=== PATIENT | female | born 1940 | race Caucasian/White ===

== ENCOUNTER 2017-01-24 10:13 | Day surgery (SDC) | payer MEDICARE, OTHER ==
[~2017-01-24] VITALS: Ht 160 cm; Wt 68.2 kg
[2017-01-24 11:19] VITALS: Ht 160 cm; Wt 68.2 kg
[2017-01-24] MEDS ORDERED: LEVO75TA5 PO (11:33)
[2017-01-24] MEDS ORDERED: OMEP20CA16 PO ×2 (11:33)
[2017-01-24] MEDS ORDERED: ATEN50TA PO (11:33)
[2017-01-24] MEDS ORDERED: LOSA25TA5 PO (11:33)
[2017-01-24 11:40] VITALS: BP 131/69; PULSE 57; RESP 20
[2017-01-24] MEDS ORDERED: PROPOFOL 40 ML ONE (11:50)
[2017-01-24] MEDS ORDERED: LIDOCAINE 100 MG SYRINGE ONE (11:50)
[2017-01-24] MEDS ORDERED: FENTAnyl 50 MCG/ML VIAL ONE (11:51)
--- NOTE | 2017-01-24 12:25 | OPPN ---
Date/Time of Note Date/Time of Note DATE: 01/24/17 TIME: 12:24 Operative Report Preoperative Diagnosis Abdominal pain Rectal bleeding Postoperative Diagnosis Gastritis with erosions Internal hemorrhoids Diverticulosis of the colon Operation/Procedure Performed Esophagogastroduodenoscopy and biopsy Colonoscopy Surgeon see signature line patient care nursing assistant None Anesthesia: MAC Estimated blood loss: none Transfusion Required none Specimen Gastric mucosal biopsy Grafts/Implants none Complications none DEMETRIO YOUNG MD Jan 24, 2017 12:25
[2017-01-24 12:48] VITALS: BP 134/55; PULSE 51; RESP 12
--- NOTE | 2017-01-25 05:32 | GILP ---
DATE OF PROCEDURE: NAME OF PROCEDURES: 1. Esophagogastroduodenoscopy and biopsy. 2. Colonoscopy. SURGEON: Demetrio Lewis MD. PREOPERATIVE DIAGNOSES: 1. Abdominal pain. 2. Screening colonoscopy. POSTOPERATIVE DIAGNOSES: 1. Gastritis with erosions. 2. Gastric mucosal biopsies were taken for Helicobacter pylori test. 3. Colonoscopy all the way to the cecum. 4. Diverticulosis of the colon. 5. Internal hemorrhoids. INDICATION FOR THE PROCEDURE: Ms. Mónica Dunn is a 76-year-old female patient who had upper abdominal pain, not responding to therapy. She also had rectal bleeding. The procedures and possible complications were well explained to the patient. The patient understood and consented to the procedure. DESCRIPTION OF PROCEDURE: Under the influence of anesthesia, the gastroscope was carefully introduced into the esophagus and under direct vision, it was advanced to the stomach and through the pylorus into the duodenal bulb and descending duodenum. FINDINGS: ESOPHAGUS: The mucosa was normal. STOMACH: The patient had gastritis with erosions. Gastric mucosal biopsies were taken for H. pylori test. DUODENUM: Normal. The colonoscope was carefully introduced in the rectum and under direct vision, it was advanced all the way to the cecum. FINDINGS: The patient had internal hemorrhoids and diverticulosis of the colon. No colon neoplasm was identified. She tolerated the procedures very well and there was no complication from the procedures. At the end of the procedures, she was awake with stable vital signs and she was discharged home to the care of her family. IMPRESSION: Please see postoperative diagnoses. PLAN: 1. Continue omeprazole. 2. Add Zantac 300 mg p.o. at bedtime. 3. Await H. pylori test report. 4. Advised high-fiber diet. 5. Anusol-HC 2.5% cream b.i.d. 6. Because of the patient's age, she will not need another screening colonoscopy. Dictated By: DEMETRIO WILSON/EUGENIA Conf#: [id number] DID#: [id number] MTDD
== END 2017-01-24 20:56 | disposition home or self-care (01) ==
LOC: GIL 10:13
PROVIDERS: ATTEND Internal Medicine Gastroenterology
DX: Z12.11 Encounter for screening for malignant neoplasm of colon (principal); K29.70 Gastritis, unspecified, without bleeding; K57.90 Diverticulosis of intestine, part unspecified, without perforation or abscess without bleeding; K64.8 Other hemorrhoids; I10 Essential (primary) hypertension; E03.9 Hypothyroidism, unspecified
CPT/HCPCS: 43239; 87081; G0121; J2001; J3010